=== PATIENT | male | born 1945 | race Caucasian/White ===

== ENCOUNTER 2019-04-06 10:59 | Outpatient (CLI) | payer MEDICARE, OTHER ==
[2019-04-06 22:59] VITALS: BP 126/97
--- NOTE | 2019-04-06 22:59 | SLEEP CARE CONSULTATION ---
Information from patient questionnaire entered by Bijal Zaragoza. I have reviewed and concur with the information entered by Bijal Zaragoza. This document represents the service I personally performed and the decisions made by me, Roberto Rodgers MD, [facility]. History of Present Illness Reason for Visit: New patient, Previously diagnosed sleep apnea, sleep apnea on CPAP therapy Chief Complaint: reports: Other (Check my CPAP) Usual bedtime: 10 pm Time it takes to fall asleep: 10 mins Snores at night: Yes Observed to quit breathing while asleep: Yes Sleeps alone due to snoring: Yes Number of times waking at night: 2 Reasons for waking at night: reports: Bathroom Toss, Turn, or Twitch while sleeping: No Recalls having dreams: Yes Usually gets out of bed at: 5 am Feels refreshed in the morning: No Morning headache: No Sleepy or fatigued during the day: Yes Ever fallen asleep while driving: Yes Takes day naps: No Dreams during day naps: No Prior sleep studies: Yes Year and Where: 2014 Additional HPI information: I had the pleasure of seeing Mr. Michaels today regarding obstructive sleep apnea-hypopnea. As you know, he is a 73 year old gentleman who was diagnosed with the sleep-disordered breathing in [place], [place] in 2014. The AHI was 58, and william oxygen saturation was 76%. He was prescribed a CPAP device set at 12 cmH2O. He uses every night and all night. The compliance data show usage in 102 out of the past 180 nights, averaging 6 hours a night. The residual AHI is 1.2 and average air leak is 6.9 L/minute. He wears a nasal mask. He gets his supplies from [employer] which is very unhappy with. He finds the treatment very beneficial. - Parasomnia Symptoms Ever been unable to move upon waking from sleep: No Ever felt weak in the knees when startled or emotional: No Bothered by creepy, crawly, restless sensations in legs: No Problems with memory or concentration: No Subjective Initial [place] Sleepiness Scale score: 10 Past Medical History Past Medical History: reports: Hypertension, Coronary Heart Disease, Other (s/p tonsillectomy) Social History The patient's occupation is RETIRED. Patient is and lives in [place]. Have you smoked in the past 12 months: No Alcohol use: No Caffeine use: Yes Caffeine amount and frequency: 1 cup a day Family History Family history of sleep disordered breathing: No Allergies and Home Medications Drug allergies reviewed: Yes Home medication list reviewed: Yes Allergy and home medication list: Current Medications: lisinopril and a statin Allergies: no known drug allergies Review of Systems Weight gain over past 5 years: 25 Cardiovascular: reports: irregular heart rate or pulse Respiratory: denies: shortness of breath, wheeze, sputum production, chronic cough, other Gastrointestinal: denies: heartburn, difficulty swallowing, nausea, vomitting, diarrhea, abdominal pain, other Urinary: reports: frequency Neurological: denies: headaches, seizure, head trauma, disorientation, speech dysfunction, gait or balance problems, fainting or unconsciousness, other Ear/Nose/Throat: reports: dry mouth/throat, tonsillectomy, wisdom teeth removed Endocrine: reports: increased urination Musculoskeletal: reports: joint pain Immunologic: denies: sneezing, rash, itching, allergies to food or environment, other Physical Exam Vital signs obtained and entered by: Dr. Rodgers Blood Pressure: 126/97 Cuff size: regular Heart Rate: 55 O2 Saturation: 98 Height: 6 ft Weight: 275 lb Body Mass Index: 37.3 BMI Classification: Obesity Class 2 Neck circumference: 17.5 HEENT: No craniofacial malformation Nostrils: patent to airflow Turbinates: normal Septum: midline Mouth and throat: narrow oropharynx Soft palate: long Hard palate: normal Uvula: normal Uvula visualization: 50% Mallampati Class II Tongue: normal in size Tonsils: absent bilaterally Chin and jaw: normal size and position Neck: normal w/o lymphadenopathy or thyromegaly Heart: regular rate and rhythm Lungs: clear bilaterally Abdomen: soft, non-tender Extremities: no edema or clubbing Neurologic: intact, no focal deficits Impression and Plan IMPRESSION: 1. Obstructive Sleep Apnea-Hypopnea Syndrome, severe, as previously diagnosed. The patient has had good treatment compliance. The current pressure setting appears effective and comfortable. The patient experiences improvement on the treatment. Narrow oropharynx and obesity are common predisposing factors for obstructive sleep apnea-hypopnea syndrome. Pathophysiology of sleep-disordered breathing was discussed. Because the CPAP is now older than the useful life of 5 years, I will order the patient a new one and make it an autoCPAP set between 8 and 13 cmH2O. Plan: 1. Prescription made for an autoCPAP, heated humidifier, and related supplies. 2. Attempt to lose weight. 3. Return for follow up after one month on the new machine. I spent 100% of this visit face to face with the patient with greater than 50% of this was spent time counseling the patient and coordination of care.
== END 2019-04-06 11:00 | disposition home or self-care (01) ==
LOC: SC 10:59
PROVIDERS: ATTEND Internal Medicine Pulmonary Disease
DX: G47.33 Obstructive sleep apnea (adult) (pediatric) (principal)
CPT/HCPCS: 99203; G0463; 99212

== ENCOUNTER 2019-06-30 09:46 | Outpatient (CLI) | payer MEDICARE, OTHER ==
--- NOTE | 2019-06-30 16:31 | SLEEP CARE CONSULTATION ---
Information from patient questionnaire entered by Bijal Zaragoza. I have reviewed and concur with the information entered by Bijal Zaragoza. This document represents the service I personally performed and the decisions made by me, Roberto Rodgers MD, [facility]. History of Present Illness Previous diagnosis: Severe, Obstructive Sleep Apnea-Hypopnea Syndrome AHI: 58 Reason for follow up: first compliance after device update Equipment type: CPAP Equipment obtained from: [employer] Mask style: Nasal HPI additional information: HPI: Mr. Michaels returned today for follow up of nasal CPAP therapy. He was diagnosed to have severe obstructive sleep apnea-hypopnea syndrome. The patient wears a nasal mask. He reports using the device nightly and all through the night. The compliance report shows usage in 25 nights out of the past 35 nights, averaging 5 hours a night. The > 4 hour compliance rate for the past 30 days is 100% (the other 5 nights he used his traveling CPAP). He complained of no particular problem with the device such as soreness on the face, dry nose, epistaxis, nasal congestion or headache. He thinks that the pressure of 8 13 cmH2O is too low (his old machine was set on 12 cmH2O). On the CPAP therapy he notices improvement in his sleep quality, and that he wakes up feeling fresher in the morning and more awake/alert during the day. [place] Sleepiness Scale score is 13. His notices no snore at all. The average residual AHI is 2.6; and average time in large leak per day is 26 seconds. The 90th percentile pressure is 10.2 cmH2O. CPAP Compliance Data - Data Reviewed with Patient Average duration of nightly device use: 6 Compliance rate %: 80 Current pressure setting (cmH2O): 8-13 Humidity settin Heated hose settin Average residual AHI: 2.6 Average large leak: 26 sec Subjective Initial [place] Sleepiness Scale score: 10 Current [place] Sleepiness Scale score: 13 Allergies and Home Medications Drug allergies reviewed: Yes (NKDA) Home medication list reviewed: Yes (lisinopril and a statin) Review of Systems Review of systems same as previous: Yes Physical Exam Vital signs obtained and entered by: Physical exam is deferred due to the COVID- 19 pandemic. Height: 6 ft Weight: 278 lb Body Mass Index: 37.7 BMI Classification: Obese Impression and Plan IMPRESSION: 1. Obstructive Sleep Apnea-Hypopnea Syndrome, severe, with the patient doing well on nasal CPAP therapy. He has excellent compliance and significant clinical improvement. The current pressure appears effective but uncomfortable. His mask fits well. Overall, he is very satisfied with treatment and plans to continue with it long-term. For his comfort, I will raise the pressure range to 10 13 cmH2O. PLAN: 1. Continue with autoCPAP set at 10 - 13 cmH2O. 2. Try to lose weight 3. Return in one year for follow up or earlier if there is any problem with the treatment. I spent 100% of this visit face to face with the patient with greater than 50% of this was spent time counseling the patient and coordination of care.
== END 2019-06-30 09:47 | disposition home or self-care (01) ==
LOC: SC 09:46
PROVIDERS: ATTEND Internal Medicine Pulmonary Disease
DX: G47.33 Obstructive sleep apnea (adult) (pediatric) (principal); E66.9 Obesity, unspecified; Z68.37 Body mass index [BMI] 37.0-37.9, adult
CPT/HCPCS: 99213; G0463; 99212

== ENCOUNTER 2020-05-16 09:32 | Outpatient (CLI) | payer MEDICARE, OTHER ==
--- NOTE | 2020-05-16 10:16 | SLEEP CARE CONSULTATION ---
Information from patient questionnaire entered by Bijal Zaragoza. I have reviewed and concur with the information entered by Bijal Zaragoza. This document represents the service I personally performed and the decisions made by me, Roberto Rodgers MD, [facility]. 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 Michaels was diagnosed to have severe obstructive sleep apnea- hypopnea syndrome and returns today for follow up of CPAP therapy. The patient purchased the device from [employer] and was fitted with a nasal mask. He uses the device nightly and all through the night. The compliance report shows that he uses the device 166 nights out of the past 180 nights, averaging 5.9 hours a night. He complains of no air blowing into eyes and condensation in the hose/mask. He thinks that the pressure of 12 cmH2O is too low. On the CPAP therapy he notices improvement in his sleep quality, and that he wakes up feeling fresher in the morning and more awake/alert during the day. His notices no snore at all. [place] Sleepiness Scale score is 8. The average residual AHI is 1.3; and average time in large leak per day is 1.5 minutes a night. The 90th percentile pressure is 12.2 cmH2O. CPAP Compliance Data - Data Reviewed with Patient Average duration of nightly device use: 6 hr 24 min Compliance rate %: 86.7 (180 days) Current pressure setting (cmH2O): 10-13 Humidity settin Heated hose settin Average residual AHI: 1.3 Average large leak: 1 min 33 sec Subjective Patient concerns: reports: air blowing in eyes, condensation in mask/hose, dry mouth, nose, throat, epistaxis Initial [place] Sleepiness Scale score: 10 (in 2019) Current [place] Sleepiness Scale score: 8 Allergies and Home Medications Drug allergies reviewed: Yes Home medication list reviewed: Yes Review of Systems Review of systems same as previous: Yes Physical Exam Vital signs obtained and entered by: To minimize the risk of COVID-19 exposure, detailed exam was not performed Height: 6 ft Weight: 287 lb Body Mass Index: 38.9 BMI Classification: Obese Impression and Plan IMPRESSION: 1. Obstructive Sleep Apnea-Hypopnea Syndrome, severe (AHI was 58 in 2015 in [place], [place]) with the patient continuing to do well on nasal CPAP therapy. He has excellent compliance and significant clinical benefits. The current pressure appears effective and comfortable. Overall, he is very satisfied with treatment and plans to continue with it long-term. For his comfo rt, I will raise the pressure a little. PLAN: 1. AutoCPAP raised to 11 - 15 cm H2O on the device. 2. Use the heated hose to prevent condensation 3. [employer] Medical form filled out and mailed with his 6-month compliance report. 4. Try to lose weight. Return in one year for follow up or earlier if there is any problem with the treatment. Visit Type: In Office Time Spent with Patient (minutes): 20 Provider Statement: I spent 100% of the Face to Face Visit with the patient with greater than 50% spent counseling the patient and coordination of care.
== END 2020-05-16 09:33 | disposition home or self-care (01) ==
LOC: SC 09:32
PROVIDERS: ATTEND Internal Medicine Pulmonary Disease
DX: G47.33 Obstructive sleep apnea (adult) (pediatric) (principal); E66.9 Obesity, unspecified; Z68.38 Body mass index [BMI] 38.0-38.9, adult
CPT/HCPCS: 99213; G0463; 99212